=== PATIENT | female | born 1975 | race Asian ===

== ENCOUNTER 2021-06-10 12:53 | Emergency (ER) | payer SELFPAY ==
[~2021-06-10] VITALS: Ht 160 cm; Wt 61.0 kg
[2021-06-10 12:55] VITALS: BP 119/85
[2021-06-10] MEDS ORDERED: DIPHENHYDRAMINE 25MG CAPSULE PO ONE (14:45)
[2021-06-10] MEDS ORDERED: HYDR25SU37 RC (14:48)
[2021-06-10] MEDS ORDERED: P50 MT (14:48)
[2021-06-10] MEDS ORDERED: DIPH25CA83 MT (14:48)
== END 2021-06-10 15:07 | disposition home or self-care (01) ==
LOC: ER 14:46
DX: R45.1 Restlessness and agitation (principal); F91.8 Other conduct disorders
CPT/HCPCS: 99283; Q0163